=== PATIENT | female | born 1995 | race Caucasian/White ===

== ENCOUNTER 2022-09-03 23:37 | Emergency (ER) | payer BC ==
[~2022-09-03] VITALS: Ht 165.1 cm; Wt 66.0 kg
[2022-09-04] MEDS ORDERED: ACETAMINOPHEN 325MG TABLET PO STA (02:42)
[2022-09-04] MEDS ORDERED: SODIUM CHLORIDE 0.9% 1,000 ML IV ONE (02:45)
[2022-09-04] MEDS ORDERED: ACETAMINOPHEN 325MG TABLET PO NR (05:30)
[2022-09-04 05:53] LABS: BASOPHILS % 0.5 % (0.0-2.0); EOSINOPHILS % 0.5 % (0.0-5.0); HEMATOCRIT. 34.7 % (36.0-48.0); HEMOGLOBIN. 11.8 g/dL (12.0-16.0); LYMPHOCYTES % 11.7 % (20.0-50.0); MEAN CORPUSCULAR HEMOGLOBIN 31.7 pg (28.0-32.0); MEAN CORPUSCULAR VOLUME 93.2 fL (81.0-99.0); MEAN PLATELET VOLUME 8.9 fl (7.4-10.4); MONOCYTES % 9.7 % (2.0-8.0); NEUTROPHILS % 77.6 % (40.0-76.0); PLATELET 214 x1000/uL (130-400); RED BLOOD CELL COUNT 3.73 mill/uL (4.2-5.4); RED CELL DISTRIBUTION WIDTH 14.4 % (11.6-14.6)
[2022-09-04 06:16] LABS: CHLORIDE 104 mEq/L (98-107)
[2022-09-04] MEDS ORDERED: IBUP-2028 MT (06:42)
[2022-09-04 08:07] VITALS: BP 114/66
== END 2022-09-04 08:15 | disposition home or self-care (01) ==
LOC: ER 23:37
DX: B34.9 Viral infection, unspecified (principal); R00.0 Tachycardia, unspecified; Z20.822 Contact with and (suspected) exposure to COVID-19; E05.00 Thyrotoxicosis with diffuse goiter without thyrotoxic crisis or storm
CPT/HCPCS: 36415; 71045; 80053; 81025; 85025; 87426; 87804; 96360; 99285; C9803; J7030; Z7610